=== PATIENT | male | born 1950 | race Caucasian/White ===

== ENCOUNTER 2017-06-08 07:54 | Day surgery (SDC) | payer OTHER ==
[~2017-06-08] VITALS: Ht 170.2 cm; Wt 93.9 kg
[~2017-06-08 07:54] MED LIST: ALTA1CAP3 PO; ASPI1TAB PO; CHLO12TA2 PO; CRES40TA PO; DOK100TA; FERR325T3 PO; FLOM5CAP PO; METF500T4 PO; MUCI600T37; MULT1TAB10 PO; PROT20TA11; VITA100067 PO; VITA500T PO; ZOLP10TA2
[2017-06-08] MEDS ORDERED: NS 1,000 ML IV ONE (08:15)
[2017-06-08] MEDS ORDERED: LIDOCAINE 2% INJ 100 MG/5 ML SDV (FOR ANES.) As Ordered ONE (09:29)
[2017-06-08] MEDS ORDERED: PROPOFOL 200 MG/20 ML VIAL As Ordered ONE ×2 (09:29→09:30)
--- NOTE | 2017-06-08 09:45 | ROOR ---
Patient Name: Regulo Driver Procedure Date: 06/08/2017 9:24 AM Date of : 1950 Age: 66 Room: [facility] Gender: Male Note Status: Finalized Procedure: Colonoscopy Indications: Screening for colorectal malignant neoplasm Providers: Josiah Morales Jr, MD Referring MD: STEPHON SZYMANSKI MD Requesting Provider: Medicines: Propofol per Anesthesia Complications: No immediate complications. Procedure: Pre-Anesthesia Assessment: - Prior to the procedure, a History and Physical was performed, and patient medications and allergies were reviewed. The patient is competent. The risks and benefits of the procedure and the sedation options and risks were discussed with the patient. All questions were answered and informed consent was obtained. Patient identification and proposed procedure were verified by the physician and the nurse in the pre-procedure area and in the procedure room. Mental Status Examination: alert and oriented. Airway Examination: normal oropharyngeal airway and neck mobility. Respiratory Examination: clear to auscultation. CV Examination: normal. ASA Grade Assessment: II - A patient with mild systemic disease. After reviewing the risks and benefits, the patient was deemed in satisfactory condition to undergo the procedure. The anesthesia plan was to use moderate sedation / analgesia (conscious sedation). Immediately prior to administration of medications, the patient was re-assessed for adequacy to receive sedatives. The heart rate, respiratory rate, oxygen saturations, blood pressure, adequacy of pulmonary ventilation, and response to care were monitored throughout the procedure. The physical status of the patient was re-assessed after the procedure. The Colonoscope was introduced through the anus and advanced to the cecum, identified by appendiceal orifice and ileocecal valve. The colonoscopy was performed without difficulty. The patient tolerated the procedure well. The quality of the bowel preparation was adequate. Findings: The rectum, recto-sigmoid colon, sigmoid colon, descending colon, transverse colon, ascending colon, cecum, appendiceal orifice and ileocecal valve appeared normal. Impression: - The rectum, recto-sigmoid colon, sigmoid colon, descending colon, transverse colon, ascending colon, cecum, appendiceal orifice and ileocecal valve are normal. - No specimens collected. Recommendation: - Discharge patient to home (ambulatory). - Repeat colonoscopy in 10 years for screening purposes. Josiah Morales MD Josiah Morales Jr, MD 06/08/2017 9:44:24 AM This report has been signed electronically. Number of Addenda: 0 Note Initiated On: 06/08/2017 9:24 AM Estimated Blood Loss: Estimated blood loss: none.
[2017-06-08 10:10] VITALS: BP 138/84
== END 2017-06-08 10:25 | disposition home or self-care (01) ==
LOC: M OPP 07:54
PROVIDERS: ATTEND Surgery
DX: Z12.11 Encounter for screening for malignant neoplasm of colon (principal); I25.10 Atherosclerotic heart disease of native coronary artery without angina pectoris; I10 Essential (primary) hypertension; E78.5 Hyperlipidemia, unspecified; E11.9 Type 2 diabetes mellitus without complications; R12 Heartburn; K21.9 Gastro-esophageal reflux disease without esophagitis; D64.9 Anemia, unspecified; M19.90 Unspecified osteoarthritis, unspecified site; F43.10 Post-traumatic stress disorder, unspecified; E66.9 Obesity, unspecified; Z85.528 Personal history of other malignant neoplasm of kidney; Z95.1 Presence of aortocoronary bypass graft; Z87.891 Personal history of nicotine dependence; Z79.82 Long term (current) use of aspirin; Z79.899 Other long term (current) drug therapy; Z79.84 Long term (current) use of oral hypoglycemic drugs; Z80.42 Family history of malignant neoplasm of prostate; Z80.8 Family history of malignant neoplasm of other organs or systems

== ENCOUNTER → 2020-06-01 | Outpatient (CLI) | payer SELFPAY ==
[~2020-06-01] MED LIST changes: -ASPI1TAB PO; +ASPI81TA26 PO; -DOK100TA; +DOK100TA2; +FLOM0.4C39 PO; -FLOM5CAP PO; +METF-838 PO; -METF500T4 PO; +VITA-243 PO; -VITA500T PO
== END ==
LOC: M LABSMTC 16:01
PROVIDERS: ATTEND Pediatrics
DX: Z20.828 Contact with and (suspected) exposure to other viral communicable diseases (principal)

== ENCOUNTER 2024-06-11 09:06 | Day surgery (SDC) | payer MEDICARE, OTHER ==
[~2024-06-11] VITALS: Ht 170.2 cm; Wt 85.3 kg
[~2024-06-11 09:06] MED LIST changes: +ATOR80TA59 PO; +CYAN100049 PO; +DOCU100C16 PO; +EZET10TA58 PO; +JARD1TAB PO; +LR 1,000 ML IV SCH; +MULT-90 PO; +NITR0.4S14 SL; +PANT20TA6 PO; +RAMI5CAP60 PO; +VITA100093 PO; +VITA500T9 PO; +ZOLP5TAB PO; +ceFAZolin SOD 1 GM in DEXTROSE 5% (D5W) ADV/MINI-BAG 50 ML IV ONE; +ceFAZolin SOD 2 GM in IV 1 EA IV ONE
[2024-06-11] MEDS ORDERED: propofoL 200 MG/20 ML VIAL As Ordered ONE (09:32)
[2024-06-11] MEDS ORDERED: LIDOCAINE 2% 100MG/5ML SDV (FOR ANES.) As Ordered ONE (09:32)
[2024-06-11] MEDS ORDERED: ONDANSETRON 4MG 2ML VIAL As Ordered ONE (09:32)
[2024-06-11] MEDS ORDERED: ROCURONIUM BROMIDE 50MG/5ML VIAL As Ordered ONE (09:32)
[2024-06-11] MEDS ORDERED: fentaNYL 100 MCG/2 ML INJECTION As Ordered ONE (09:32)
[2024-06-11] MEDS ORDERED: SUGAMMADEX SODIUM 500 MG/5 ML VIAL (BRIDION) As Ordered ONE (09:32)
[2024-06-11] MEDS ORDERED: MIDAZOLAM INJ 2MG/2ML VIAL As Ordered ONE (09:32)
[2024-06-11] MEDS ORDERED: ACETAMINOPHEN 1000MG/100ML IV BAG As Ordered ONE (09:32)
[2024-06-11] MEDS: ceFAZolin SOD 2 GM in IV 1 EA IV ONE (10:30)
[2024-06-11] MEDS ORDERED: oxyCODONE 5MG TAB PO PRN (11:45)
[2024-06-11] MEDS ORDERED: HYDROMORPHONE HCL 0.5 MG/ 0.5 ML SYRINGE IV PRN (11:45)
[2024-06-11] MEDS ORDERED: ONDANSETRON 4MG 2ML VIAL IV PRN (11:45)
[2024-06-11] MEDS ORDERED: fentaNYL 100 MCG/2 ML INJECTION IV PRN (11:45)
[2024-06-11 13:45] VITALS: BP 160/74; TEMP 97; O2SAT 99
[2024-06-11] MEDS ORDERED: traMADol 50 MG TAB PO PRN (14:45)
[2024-06-11] MEDS ORDERED: NS (Normal Saline) 0.9% 1,000 ML IV SCH (14:50)
== END 2024-06-11 13:56 | disposition home or self-care (01) ==
LOC: M SDC 09:06
PROVIDERS: ATTEND Surgery
DX: K40.90 Unilateral inguinal hernia, without obstruction or gangrene, not specified as recurrent (principal); E11.9 Type 2 diabetes mellitus without complications; I25.10 Atherosclerotic heart disease of native coronary artery without angina pectoris; I10 Essential (primary) hypertension; F43.10 Post-traumatic stress disorder, unspecified; Z79.899 Other long term (current) drug therapy; Z87.891 Personal history of nicotine dependence
CPT/HCPCS: 49650; C1781; J0131; J0665; J0690; J1100; J2250; J2405; J3010; S2900

== ENCOUNTER → 2025-03-25 | Outpatient (CLI) | payer MEDICARE, OTHER ==
[~2025-03-25] MED LIST changes: -FLOM0.4C39 PO; -LR 1,000 ML IV SCH; +TAMS-18 PO; +ZOLP10TA11; -ZOLP10TA2; -ZOLP5TAB PO; +ZOLP5TAB9 PO; -ceFAZolin SOD 1 GM in DEXTROSE 5% (D5W) ADV/MINI-BAG 50 ML IV ONE; -ceFAZolin SOD 2 GM in IV 1 EA IV ONE
== END ==
LOC: M CARPUL 09:18
PROVIDERS: ATTEND Registered Nurse
DX: I08.0 Rheumatic disorders of both mitral and aortic valves (principal); I77.810 Thoracic aortic ectasia; R00.1 Bradycardia, unspecified

== ENCOUNTER → 2025-05-02 | Outpatient (CLI) | payer MEDICARE, OTHER ==
[2025-05-02 10:00] LABS: CALCIUM LEVEL 8.4 MG/DL (8.3-10.6); CARBON DIOXIDE LEVEL 28 MMOL/L (20-31); CHLORIDE LEVEL 105 MMOL/L (98-107); CREATININE FOR GFR 0.84 MG/DL (0.70-1.30); GLOMERULAR FILTRATION RATE > 90.0 (>42); MAGNESIUM LEVEL 1.8 MG/DL (1.8-2.4); POTASSIUM SERUM 4.2 MMOL/L (3.5-5.1); SODIUM LEVEL 141 MMOL/L (136-145)
== END ==
LOC: M LAB 08:52
PROVIDERS: ATTEND Nurse Practitioner Family
DX: I25.5 Ischemic cardiomyopathy (principal); I50.20 Unspecified systolic (congestive) heart failure

== ENCOUNTER → 2025-05-14 | Outpatient (CLI) | payer MEDICARE, OTHER | LOC: M SLEEP HO 12:47 | PROVIDERS: ATTEND Nurse Practitioner Family | DX: I27.20 Pulmonary hypertension, unspecified (principal); G47.33 Obstructive sleep apnea (adult) (pediatric) ==

== ENCOUNTER → 2025-06-03 | Outpatient (CLI) | payer MEDICARE, OTHER ==
[2025-06-03 11:08] LABS: CALCIUM LEVEL 9.2 MG/DL (8.3-10.6); CARBON DIOXIDE LEVEL 29.0 MMOL/L (20-31); CHLORIDE LEVEL 105.0 MMOL/L (98-107); CREATININE FOR GFR 0.92 MG/DL (0.70-1.30); GLOMERULAR FILTRATION RATE 88.4 (>42); MAGNESIUM LEVEL 1.8 MG/DL (1.8-2.4); POTASSIUM SERUM 4.6 MMOL/L (3.5-5.1); SODIUM LEVEL 142.0 MMOL/L (136-145)
== END ==
LOC: M LAB 09:23
PROVIDERS: ATTEND Nurse Practitioner Family
DX: I25.5 Ischemic cardiomyopathy (principal); I27.20 Pulmonary hypertension, unspecified